=== PATIENT | female | born 1995 | race Caucasian/White ===

== ENCOUNTER 2018-03-27 22:31 | Emergency (ER) | payer OTHER ==
[2018-03-27] MEDS: NAPROXEN 250 MG TAB PO (23:20)
[2018-03-27] MEDS: METOCLOPRAMIDE 10 MG TAB PO (23:21)
== END 2018-03-28 00:05 | disposition home or self-care (01) ==
LOC: M ED 03-28 00:05
DX: S06.0X0A Concussion without loss of consciousness, initial encounter (principal); W20.8XXA Other cause of strike by thrown, projected or falling object, initial encounter; Y92.410 Unspecified street and highway as the place of occurrence of the external cause; Z79.899 Other long term (current) drug therapy
CPT/HCPCS: 70450